=== PATIENT | male | born 1975 | race African-American/Black ===

== ENCOUNTER 2021-08-01 14:03 | Emergency (ER) | payer OTHER ==
[~2021-08-01] VITALS: Ht 182.9 cm; Wt 90.0 kg
[2021-08-01] MEDS ORDERED: DEXAMETHASONE 4MG/ML 1ML VIAL IV ONE (14:45)
[2021-08-01 14:46] LABS: BASOPHILS % 0.3 % (0.0-2.0); EOSINOPHILS % 0.1 % (0.0-5.0); HEMATOCRIT. 44.6 % (42.0-52.0); HEMOGLOBIN. 14.8 g/dL (14.0-18.0); LYMPHOCYTES % 11.2 % (20.0-50.0); MEAN CORPUSCULAR HEMOGLOBIN 26.2 pg (28.0-32.0); MEAN CORPUSCULAR VOLUME 79.1 fL (80.0-94.0); MEAN PLATELET VOLUME 7.7 fl (7.4-10.4); MONOCYTES % 3.9 % (2.0-8.0); NEUTROPHILS % 84.5 % (40.0-76.0); PLATELET 376 x1000/uL (130-400); RED BLOOD CELL COUNT 5.64 mill/uL (4.7-6.1)
[2021-08-01 14:53] LABS: CHLORIDE 100 mEq/L (98-107)
[2021-08-01] MEDS ORDERED: AZITHROMYCIN 500MG/250ML 250 ML IV NR (17:15)
[2021-08-01] MEDS ORDERED: CEFTRIAXONE 1 G PREMIX 50 ML IV NR (17:15)
[2021-08-01] MEDS ORDERED: IOHEXOL-350 100 ML BOTTLE ONE (19:14)
[2021-08-01 22:56] VITALS: BP 130/95
== END 2021-08-01 23:09 | disposition short-term general hospital (02) ==
LOC: ER 14:03
DX: J84.9 Interstitial pulmonary disease, unspecified (principal); Z20.822 Contact with and (suspected) exposure to COVID-19
CPT/HCPCS: 36415; 71045; 71275; 80053; 83880; 84484; 85025; 87426; 93005; 96365; 96366; 96368; 96375; 99291; J0456; J0696; J1100; Q9967